=== PATIENT | female | born 1945 | race Caucasian/White ===

== ENCOUNTER 2019-01-28 18:58 | Emergency (ER) | payer MEDICARE ==
[~2019-01-28] VITALS: Ht 167.6 cm; Wt 106.0 kg
[2019-01-28] MEDS ORDERED: traMADol 50MG tablet PO ONE (20:30)
[2019-01-28] MEDS ORDERED: ondansetron 4mg rapidly disintigrating tab PO ONE (20:30)
[2019-01-28 21:03] VITALS: BP 191/86
== END 2019-01-28 21:18 | disposition home or self-care (01) ==
LOC: ER 18:58
DX: S00.81XA Abrasion of other part of head, initial encounter (principal); S00.212A Abrasion of left eyelid and periocular area, initial encounter; M19.012 Primary osteoarthritis, left shoulder; G47.30 Sleep apnea, unspecified; Z98.890 Other specified postprocedural states; W01.190A Fall on same level from slipping, tripping and stumbling with subsequent striking against furniture, initial encounter; Y93.89 Activity, other specified; Y92.099 Unspecified place in other non-institutional residence as the place of occurrence of the external cause; Y99.8 Other external cause status
CPT/HCPCS: 70450; 73030; 99284